=== PATIENT | female | born 1995 | race African-American/Black ===

== ENCOUNTER 2016-11-06 07:20 | Emergency (ER) | payer OTHER ==
[~2016-11-06] VITALS: Ht 154.9 cm; Wt 61.2 kg
[2016-11-06] MEDS ORDERED: CIPRODEX OTIC7.5 ML OTIC (09:13)
[2016-11-06] MEDS ORDERED: CIPROFLOXACIN500 M1 PO (09:13)
[2016-11-06 09:37] VITALS: BP 126/77
== END 2016-11-06 09:43 | disposition home or self-care (01) ==
LOC: ER 07:20
DX: H60.92 Unspecified otitis externa, left ear (principal)

== ENCOUNTER 2017-05-23 14:43 | Emergency (ER) | payer BC, OTHER ==
[~2017-05-23] VITALS: Ht 154.9 cm; Wt 63.5 kg
[~2017-05-23 14:43] MED LIST: CIPRODEX OTIC7.5 ML OTIC; CIPROFLOXACIN500 M1 PO
[2017-05-23 14:55] VITALS: BP 122/66
[2017-05-23] MEDS ORDERED: MOBIC15 MG PO (15:28)
== END 2017-05-23 15:38 | disposition home or self-care (01) ==
LOC: ER 14:43
DX: R25.2 Cramp and spasm (principal)

== ENCOUNTER 2018-05-18 13:32 | Emergency (ER) | payer OTHER ==
[~2018-05-18] VITALS: Ht 154.9 cm; Wt 63.5 kg
[~2018-05-18 13:32] MED LIST changes: +MOBIC15 MG PO
[2018-05-18 13:34] VITALS: BP 111/66
[2018-05-18 13:55] LABS: URINE BILIRUBIN NEGATIVE (Negative); URINE BLOOD NEGATIVE (Negative); URINE CLARITY CLEAR; URINE COLOR YELLOW; URINE GLUCOSE-RANDOM* NEGATIVE (Negative); URINE KETONES NEGATIVE (Negative); URINE LEUKOCYTES-REFLEX NEGATIVE (Negative); URINE NITRITE-REFLEX NEGATIVE (Negative); URINE PROTEIN (DIPSTICK) NEGATIVE (Negative); URINE SPECIFIC GRAVITY >= 1.030 (1.005-1.035); URINE UROBILINOGEN 0.2 E.U./dl (0.2-1.0)
[2018-05-18] MEDS ORDERED: AMOXICILLIN 50500 MG PO (14:33)
[2018-05-18] MEDS ORDERED: BUTALB-APAP-CA1 EACH PO (14:33)
== END 2018-05-18 15:29 | disposition home or self-care (01) ==
LOC: ER 13:32
PROVIDERS: Physician Assistant
DX: R51 Headache (principal); H66.92 Otitis media, unspecified, left ear

== ENCOUNTER 2018-09-08 19:38 | Emergency (ER) | payer OTHER ==
[~2018-09-08] VITALS: Ht 154.9 cm; Wt 68.0 kg
[~2018-09-08 19:38] MED LIST changes: +AMOXICILLIN 50500 MG PO; +BUTALB-APAP-CA1 EACH PO
[2018-09-08] MEDS ORDERED: CEPACOL SORE T1 EAC7 BUCCAL (19:53)
[2018-09-08] MEDS ORDERED: AMOXICILLI400 MG/5 M PO (19:53)
[2018-09-08 20:09] VITALS: BP 118/68
== END 2018-09-08 20:09 | disposition home or self-care (01) ==
LOC: ER 19:38
DX: H66.92 Otitis media, unspecified, left ear (principal); J02.9 Acute pharyngitis, unspecified; Z86.2 Personal history of diseases of the blood and blood-forming organs and certain disorders involving the immune mechanism

== ENCOUNTER 2018-09-14 22:56 | Emergency (ER) | payer OTHER ==
[~2018-09-14] VITALS: Ht 154.9 cm; Wt 68.0 kg
[~2018-09-14 22:56] MED LIST changes: +AMOXICILLI400 MG/5 M PO; +CEPACOL SORE T1 EAC7 BUCCAL
[2018-09-14 23:02] VITALS: BP 120/75
[2018-09-14] MEDS ORDERED: TYLENOL325 MG PO (23:22)
== END 2018-09-14 23:33 | disposition home or self-care (01) ==
LOC: ER 22:56
DX: S60.112A Contusion of left thumb with damage to nail, initial encounter (principal); W23.0XXA Caught, crushed, jammed, or pinched between moving objects, initial encounter; Y93.89 Activity, other specified; Y92.89 Other specified places as the place of occurrence of the external cause; Y99.8 Other external cause status

== ENCOUNTER 2018-11-23 13:21 | Emergency (ER) | payer OTHER ==
[~2018-11-23] VITALS: Ht 154.9 cm; Wt 67.1 kg
[~2018-11-23 13:21] MED LIST changes: +TYLENOL325 MG PO
[2018-11-23] MEDS ORDERED: AMOXICILLIN 50500 MG PO (14:07)
[2018-11-23 14:25] VITALS: BP 113/64
== END 2018-11-23 14:25 | disposition home or self-care (01) ==
LOC: ER 13:21
DX: H66.91 Otitis media, unspecified, right ear (principal)

== ENCOUNTER 2018-12-28 19:19 | Emergency (ER) | payer OTHER ==
[~2018-12-28] VITALS: Ht 154.9 cm; Wt 68.0 kg
[2018-12-28] MEDS ORDERED: NOHOMEMEDICATIONS (19:26)
[2018-12-28] MEDS ORDERED: NF (19:27)
[2018-12-28 21:02] VITALS: BP 113/65
== END 2018-12-28 21:03 | disposition home or self-care (01) ==
LOC: ER 19:19
DX: R51 Headache (principal); R05 Cough

== ENCOUNTER 2019-02-05 14:43 | Emergency (ER) | payer OTHER ==
[~2019-02-05] VITALS: Ht 154.9 cm; Wt 54.4 kg
[~2019-02-05 14:43] MED LIST changes: +NF; +NOHOMEMEDICATIONS
[2019-02-05] MEDS ORDERED: TESSALON PERLE100 MG PO (15:33)
[2019-02-05 16:04] VITALS: BP 115/70
== END 2019-02-05 16:07 | disposition home or self-care (01) ==
LOC: ER 14:43
DX: J06.9 Acute upper respiratory infection, unspecified (principal)

== ENCOUNTER 2019-12-28 20:38 | Emergency (ER) | payer OTHER ==
[~2019-12-28] VITALS: Ht 154.9 cm; Wt 63.5 kg
[~2019-12-28 20:38] MED LIST changes: +TESSALON PERLE100 MG PO
[2019-12-28 20:50] VITALS: BP 130/76
[2019-12-28] MEDS ORDERED: IBUPROFEN 600600 M1 PO (21:34)
== END 2019-12-28 22:12 | disposition home or self-care (01) ==
LOC: ER 20:38
DX: J02.9 Acute pharyngitis, unspecified (principal); Z20.828 Contact with and (suspected) exposure to other viral communicable diseases

== ENCOUNTER 2020-01-01 00:37 | Emergency (ER) | payer OTHER ==
[~2020-01-01] VITALS: Ht 154.9 cm; Wt 63.5 kg
[~2020-01-01 00:37] MED LIST changes: +IBUPROFEN 600600 M1 PO
[2020-01-01 02:08] LABS: ABSOLUTE NEUTROPHILS 8.3 thou/uL (1.4-8.2); BASOPHILS 0.8 % (0.0-2.0); EOSINOPHILS 2.4 % (0.0-3.0); HEMATOCRIT 37.5 % (37.0-47.0); HEMOGLOBIN 12.6 gm/dL (12.0-15.0); MCH 30.5 pg (26.0-34.0); MCHC 33.6 g/dL (28.0-37.0); MCV 90.9 fL (80.0-100.0); MONOCYTES 7.2 % (1.0-8.0); PLATELET COUNT 339 thou/uL (150-400); POLYS 70.6 % (36.0-66.0); RBC 4.13 mil/uL (4.20-5.00); RDW 13.7 % (10.5-14.5); WBC 11.8 thou/uL (4.0-11.0)
[2020-01-01 02:13] LABS: CALCIUM 9.2 mg/dL (8.5-10.1); CREATININE 0.8 mg/dL (0.6-1.0); POTASSIUM 4.3 mmol/L (3.5-5.1)
[2020-01-01] MEDS ORDERED: CLINDAMYCI75 MG/5 M1 PO (03:49)
[2020-01-01] MEDS ORDERED: HYDROCODON-ACE118 ML PO (03:49)
[2020-01-01 04:29] VITALS: BP 112/60
== END 2020-01-01 04:29 | disposition home or self-care (01) ==
LOC: ER 00:37
PROVIDERS: Emergency Medicine
DX: J36 Peritonsillar abscess (principal); Z79.899 Other long term (current) drug therapy

== ENCOUNTER 2020-01-07 23:28 | Emergency (ER) | payer OTHER ==
[~2020-01-07] VITALS: Ht 154.9 cm; Wt 59.0 kg
[~2020-01-07 23:28] MED LIST changes: +CLINDAMYCI75 MG/5 M1 PO; +HYDROCODON-ACE118 ML PO
[2020-01-07 23:33] VITALS: BP 127/64
[2020-01-08 01:45] LABS: HEMATOCRIT 36.6 % (37.0-47.0); HEMOGLOBIN 12.1 gm/dL (12.0-15.0); MCH 29.6 pg (26.0-34.0); MCV 89.8 fL (80.0-100.0); RBC 4.07 mil/uL (4.20-5.00); RDW 13.3 % (10.5-14.5); WBC 19.7 thou/uL (4.0-11.0)
[2020-01-08 01:51] LABS: CREATININE 0.9 mg/dL (0.6-1.0); POTASSIUM 3.8 mmol/L (3.5-5.1)
[2020-01-08] MEDS ORDERED: CLINDAMYCIN HC300 MG PO (03:06)
== END 2020-01-08 03:25 | disposition home or self-care (01) ==
LOC: ER 23:28
PROVIDERS: Emergency Medicine
DX: J02.9 Acute pharyngitis, unspecified (principal)